=== PATIENT | female | born 1965 | race Caucasian/White ===

== ENCOUNTER → 2018-09-02 | Outpatient (CLI) | payer OTHER | END | disposition home or self-care (01) | LOC: CFH 07:39 | PROVIDERS: ATTEND Nurse Practitioner Family | DX: K82.4 Cholesterolosis of gallbladder (principal) | CPT/HCPCS: 76705 ==

== ENCOUNTER 2018-10-19 07:41 | Day surgery (SDC) | payer OTHER ==
[~2018-10-19] VITALS: Ht 154.9 cm; Wt 62.0 kg
[~2018-10-19 07:41] MED LIST: ALPR0.25 PO; ERGO500017 PO; SIMV10TA3 PO
[2018-10-19] MEDS ORDERED: BUPIVACAINE/PF-EPI 0.5% 1:200K ONE (08:04)
[2018-10-19] MEDS ORDERED: LACTATED RINGERS 1,000 ML IV SCH (08:06)
[2018-10-19 08:26] VITALS: BP 117/73
[2018-10-19] MEDS ORDERED: FENTANYL PF 100 MCG/2ML ONE ×2 (08:47→10:11)
[2018-10-19] MEDS ORDERED: MIDAZOLAM 1 MG/ML, 2ML ONE (08:52)
[2018-10-19] MEDS ORDERED: PROCHLORPERAZINE 5 MG/ML, 2ML IV PRN (09:00)
[2018-10-19] MEDS ORDERED: HALOPERIDOL 5 MG/ML IV PRN (09:00)
[2018-10-19] MEDS ORDERED: MEPERIDINE/PF 25MG/0.5ML IVPush PRN (09:00)
[2018-10-19] MEDS ORDERED: METOPROLOL 1 MG/ML, 5ML IV PRN (09:00)
[2018-10-19] MEDS ORDERED: FENTANYL PF 100 MCG/2ML IV PRN (09:00)
[2018-10-19] MEDS ORDERED: OXYcodone 5 MG/5 ML ORAL.SOL UDC PO PRN (09:00)
[2018-10-19] MEDS ORDERED: DIPHENHYDRAMINE 50 MG/ML, 1ML IVPush PRN (09:00)
[2018-10-19] MEDS ORDERED: LABETALOL 5MG/ML, 20ML IV PRN (09:00)
[2018-10-19] MEDS ORDERED: hydrALAzine 20 MG/ML, 1ML IV PRN (09:00)
[2018-10-19] MEDS ORDERED: PROMETHAZINE 25 MG/ML, 1ML IV PRN (09:00)
[2018-10-19] MEDS ORDERED: SCOPOLAMINE PATCH, 1.5MG PATCH.TD72 TD ONE (09:17)
[2018-10-19] MEDS ORDERED: ONDANSETRON 2MG/ML, 2ML ONE (09:22)
[2018-10-19] MEDS ORDERED: SUCCINYLCHOLINE 20 MG/ML, 10ML ONE (09:22)
[2018-10-19] MEDS ORDERED: GLYCOPYRROLATE 0.2MG/1ML, 5ML ONE (09:22)
[2018-10-19] MEDS ORDERED: PROPOFOL 10 MG/ML, 20ML ONE (09:22)
[2018-10-19] MEDS ORDERED: NEOSTIGMINE 1 MG/ML, 10ML ONE (09:22)
[2018-10-19] MEDS ORDERED: CEFAZOLIN 1,000 MG ONE (09:22)
[2018-10-19] MEDS ORDERED: DEXAMETHASONE 4 MG/ML, 1ML ONE (09:22)
[2018-10-19] MEDS ORDERED: ROCURONIUM 10MG/ML,5ML ONE (09:22)
[2018-10-19] MEDS ORDERED: OXYcodone 5 MG/5 ML ORAL.SOL UDC ONE (10:11)
[2018-10-19] MEDS ORDERED: HYDROmorphone 1 MG/ML, 1ML ONE (10:11)
[2018-10-19] MEDS: HYDROmorphone 2 MG/ML, 1ML IVPush PRN ×2 (10:20→10:34)
[2018-10-19] MEDS ORDERED: MEPERIDINE/PF 25MG/ML,1ML ONE (10:25)
[2018-10-19] MEDS: OXYcodone/APAP 5/325MG TABLET PO PRN ×2 (14:20→15:54)
[2018-10-19] MEDS ORDERED: ONDANSETRON 2MG/ML, 2ML IVPush PRN (14:30)
== END 2018-10-19 15:55 | disposition home or self-care (01) ==
LOC: OUT 07:41
PROVIDERS: ATTEND Surgery Vascular Surgery
DX: K81.1 Chronic cholecystitis (principal); K82.4 Cholesterolosis of gallbladder; E78.5 Hyperlipidemia, unspecified; D64.9 Anemia, unspecified; F41.9 Anxiety disorder, unspecified; E78.00 Pure hypercholesterolemia, unspecified; Z88.5 Allergy status to narcotic agent; Z88.8 Allergy status to other drugs, medicaments and biological substances; Z90.710 Acquired absence of both cervix and uterus; Z98.890 Other specified postprocedural states; Z72.89 Other problems related to lifestyle
CPT/HCPCS: 47379; 47562; 88304; 88307; 88313; J0330; J0690; J1100; J1170; J2175; J2250; J2405; J2704; J2710; J3010; J3490; J7120